=== PATIENT | female | born 1950 | race Caucasian/White ===

== ENCOUNTER → 2021-02-05 | Outpatient (CLI) | payer MEDICARE ==
[~2021-02-05] MED LIST: ASPI81TA26 PO; BIMA01SOL OU; ENAL-36 PO
== END ==
LOC: M LABSMTC 13:26
PROVIDERS: ATTEND Anesthesiology
DX: Z01.812 Encounter for preprocedural laboratory examination (principal); Z11.52 Encounter for screening for COVID-19

== ENCOUNTER 2021-02-10 10:18 | Day surgery (SDC) | payer MEDICARE ==
[~2021-02-10] VITALS: Ht 157.5 cm; Wt 56.7 kg
[~2021-02-10 10:18] MED LIST changes: +CYCLOPENTOLATE 1% OPHTH SOLN 2 ML BTL OS SCH; +FLURBIPROFEN 0.03% OPHTH SOLN 2.5 ML OS SCH; +LIDOCAINE 1% SDV 5ML VIAL As Ordered ONE; +LR 1,000 ML IV SCH; +PHENYLEPHRINE 2.5% OPHTH SOL 2ML OS SCH; +TETRACAINE 0.5% OPHTH SOLN 4ML OS SCH
[2021-02-10] MEDS ORDERED: MIDAZOLAM INJ 2MG/2ML VIAL (J2250 PER 1MG) As Ordered ONE (10:38)
[2021-02-10] MEDS ORDERED: fentaNYL 100 MCG/2 ML INJECTION (J3010) As Ordered ONE (10:38)
[2021-02-10] MEDS ORDERED: KETOROLAC 0.5% OPHTH SOLN OS SCH (13:30)
[2021-02-10] MEDS ORDERED: DUOVISC (0.50ML VISCOAT/0.85ML PROVISC) OPHTH KIT As Ordered ONE ×2 (14:51→16:19)
[2021-02-10 17:05] VITALS: BP 172/88
== END 2021-02-10 17:10 | disposition home or self-care (01) ==
LOC: M SDC 10:18
PROVIDERS: ATTEND Ophthalmology
DX: H25.12 Age-related nuclear cataract, left eye (principal); H40.1120 Primary open-angle glaucoma, left eye, stage unspecified; I10 Essential (primary) hypertension; E04.1 Nontoxic single thyroid nodule; M19.90 Unspecified osteoarthritis, unspecified site; Z85.3 Personal history of malignant neoplasm of breast; Z92.21 Personal history of antineoplastic chemotherapy; F17.210 Nicotine dependence, cigarettes, uncomplicated; Z88.8 Allergy status to other drugs, medicaments and biological substances; Z79.899 Other long term (current) drug therapy; Z79.82 Long term (current) use of aspirin
CPT/HCPCS: 66183; 66984; C1783; J2250; J3010; V2632

== ENCOUNTER → 2021-03-12 | Outpatient (CLI) | payer MEDICARE ==
[~2021-03-12] MED LIST changes: +CALC600T61 PO; -CYCLOPENTOLATE 1% OPHTH SOLN 2 ML BTL OS SCH; +D31000TA2 PO; -FLURBIPROFEN 0.03% OPHTH SOLN 2.5 ML OS SCH; +KP F1200 PO; -LIDOCAINE 1% SDV 5ML VIAL As Ordered ONE; -LR 1,000 ML IV SCH; -PHENYLEPHRINE 2.5% OPHTH SOL 2ML OS SCH; -TETRACAINE 0.5% OPHTH SOLN 4ML OS SCH; +VITMTA PO
== END ==
LOC: M LABSMTC 10:27
PROVIDERS: ATTEND Anesthesiology
DX: Z01.812 Encounter for preprocedural laboratory examination (principal); Z20.822 Contact with and (suspected) exposure to COVID-19

== ENCOUNTER 2021-03-17 07:24 | Day surgery (SDC) | payer MEDICARE ==
[~2021-03-17] VITALS: Ht 157.5 cm; Wt 56.7 kg
[~2021-03-17 07:24] MED LIST changes: +CYCLOPENTOLATE 1% OPHTH SOLN 2 ML BTL OS SCH; +DUOVISC (0.50ML VISCOAT/0.85ML PROVISC) OPHTH KIT As Ordered ONE; +FLURBIPROFEN 0.03% OPHTH SOLN 2.5 ML OS SCH; +LIDOCAINE 1% MDV 20ML VIAL SQ PRN; +LIDOCAINE 1% SDV 5ML VIAL As Ordered ONE; +LR 1,000 ML IV SCH; +MIDAZOLAM INJ 2MG/2ML VIAL (J2250 PER 1MG) As Ordered ONE; +PHENYLEPHRINE 2.5% OPHTH SOL 2ML OS SCH; +TETRACAINE 0.5% OPHTH SOLN 4ML OS SCH; +fentaNYL 100 MCG/2 ML INJECTION (J3010) As Ordered ONE
[2021-03-17 11:37] VITALS: BP 170/79
== END 2021-03-17 11:45 | disposition home or self-care (01) ==
LOC: M SDC 07:24
PROVIDERS: ATTEND Ophthalmology
DX: H25.11 Age-related nuclear cataract, right eye (principal); H40.1114 Primary open-angle glaucoma, right eye, indeterminate stage; I10 Essential (primary) hypertension; E04.9 Nontoxic goiter, unspecified; M81.0 Age-related osteoporosis without current pathological fracture; F17.218 Nicotine dependence, cigarettes, with other nicotine-induced disorders; Z88.0 Allergy status to penicillin; Z79.82 Long term (current) use of aspirin; Z79.899 Other long term (current) drug therapy; Z85.3 Personal history of malignant neoplasm of breast; Z92.21 Personal history of antineoplastic chemotherapy
CPT/HCPCS: 66183; 66984; C1783; J2250; J3010; V2632